=== PATIENT | female | born 1995 | race Caucasian/White ===

== ENCOUNTER → 2019-10-19 12:06 | Outpatient (CLI) | payer BC ==
[2019-10-19 12:37] LABS: BASOPHILS 0.5 % (0-2); HEMATOCRIT 41.7 % (36.0-48.0); HEMOGLOBIN 14.1 g/dL (12-16); IMMATURE GRANULOCYTES 0.6 % (0-5); LYMPHOCYTES 31.3 % (15-50); MCH 31.1 pg (26.0-34.0); MCHC 33.8 g/dL (31.0-37.0); MCV 92.1 fL (80.0-100.0); MEAN PLATELET VOLUME 9.6 fL (7.4-10.4); NEUTROPHILS 62.6 % (40-80); PLATELET COUNT 241 10x3/uL (130-400); RBC 4.53 10x6/uL (4.00-5.40); RDW 12.6 % (11.5-14.5); WBC 8.3 10x3/uL (4.8-10.8)
[2019-10-19 12:54] LABS: APTT 34.7 SECONDS (22.8-39.4); INR 1.02 (0.85-1.17); PROTIME 13.3 SECONDS (11.6-15.0)
[2019-10-19 12:55] LABS: ANION GAP 8.2 mmol/L (8-16); CALCIUM 8.8 mg/dL (8.5-10.1); CARBON DIOXIDE 30.8 mmol/L (21.0-32.0)
--- NOTE | 2019-10-19 13:17 | NUR ---
PROCEDURE CANCELLED. DR VALENTE STATES WILL DO ULTRASOUND ONLY. IN TALKING WITH PATIENT.
== END | disposition home or self-care (01) ==
LOC: D.RAD 12:06 → D.SP 12:06 → D.RAD 13:00
PROVIDERS: Radiology Vascular & Interventional Radiology; ATTEND Family Medicine
DX: M79.89 Other specified soft tissue disorders (principal); Z68.26 Body mass index [BMI] 26.0-26.9, adult; R23.3 Spontaneous ecchymoses; Z97.5 Presence of (intrauterine) contraceptive device

== ENCOUNTER → 2020-01-09 12:27 | Outpatient (CLI) | payer BC | END | disposition home or self-care (01) | LOC: D.CN 12:27 | PROVIDERS: ATTEND Family Medicine | DX: R55 Syncope and collapse (principal) ==